=== PATIENT | female | born 1995 | race Caucasian/White ===

== ENCOUNTER 2018-03-25 14:19 | Emergency (ER) | payer BC, SELFPAY ==
[2018-03-25 14:28] VITALS: BP 134/82; PULSE 114; RESP 18; TEMP 36.6; O2SAT 100; BMI 31.8
[2018-03-25 15:23] LABS: Bacteria Urine Many (>30); Hyaline Casts Urine 1-5/LPF; Mucus Urine 1+ (Negative); RBC Urine 0-1/HPF (0-5/HPF); Squamous Epithelial Cell Urine 10-30 /HPF; WBC Urine 1-5/HPF (0-5/HPF)
[2018-03-25 15:25] LABS: Culture Indicated Urine Cult Not Indicated
--- NOTE | 2018-03-25 15:26 | ED.ABDPAIN ---
HPI - Abdominal Pain General Chief Complaint: Abdominal Pain Stated Complaint: Right sided abdominal pain Time Seen by Provider: 03/25/18 14:40 Source: patient and family Mode of arrival: ambulatory Limitations: no limitations History of Present Illness HPI narrative: 22-year-old nonsmoking female with history of AML presents with significant other in the chief complaint of gradually worsening right lower quadrant pain over the past 2 days. It started off periumbilical and now seems to be focused in her right lower quadrant. It is much worse with motion, standing up or walking. It feels much better while sitting still with her knees curled up. She denies any vaginal bleeding or discharge. She denies any dysuria, frequency or urgency but does have a history of frequent UTIs. She has had multiple episodes of nausea and vomiting has decreased appetite. MD complaint: abdominal pain Onset (ago): day(s) Pain Consistency: constant Location: RLQ Severity: moderate Quality: cramping and aching Radiation: none Migration to: no migration Relieving factors: rest Exacerbating factors: movement Associated symptoms: nausea and vomiting Related Data Home Medications Medication Instructions Recorded Confirmed acetaminophen 1,000 mg PO Q6H PRN 03/25/18 03/25/18 albuterol sulfate [Ventolin HFA] 1 puff INHALATION PRN PRN 03/25/18 03/25/18 alprazolam 1 mg PO DAILY PRN 03/25/18 03/25/18 cetirizine-pseudoephedrine 1 tab PO Q12H PRN 03/25/18 03/25/18 [Zyrtec-D] cholecalciferol (vitamin D3) 2,000 unit PO DAILY 03/25/18 03/25/18 [Vitamin D3] deferasirox [Jadenu] 1,440 mg PO BEDTIME 03/25/18 03/25/18 diphenhydramine HCl 25 mg PO Q6H PRN 03/25/18 03/25/18 fluticasone-vilanterol [Breo 1 puff INHALATION DAILY 03/25/18 03/25/18 Ellipta] hydrocodone-acetaminophen 1 tab PO PRN PRN 03/25/18 03/25/18 montelukast 10 mg PO QPM 03/25/18 03/25/18 norethindrone-e.estradiol-iron 1 tab PO DAILY 03/25/18 03/25/18 [Jayashree 24 Fe] ondansetron 8 mg PO PRN PRN 03/25/18 03/25/18 pantoprazole 40 mg PO QPM 03/25/18 03/25/18 Previous Rx's Medication Instructions Recorded hydrocodone-acetaminophen 1 tab PO Q4-6H PRN #14 tab 03/25/18 ketorolac 10 mg PO Q6H PRN #14 tab 03/25/18 ondansetron 4 mg PO TID-QID PRN #10 tab 03/25/18 Allergies Allergy/AdvReac Type Severity Reaction Status Date / Time cefixime Allergy Verified 03/25/18 14:33 rifampin Allergy Verified 03/25/18 14:33 topiramate [From Topamax] Allergy Verified 03/25/18 14:33 ketorolac [From Toradol] AdvReac Verified 03/25/18 14:33 metoclopramide [From Reglan] AdvReac Verified 03/25/18 14:33 Review of Systems Review of Systems All systems reviewed & are unremarkable except as noted in HPI and below Constitutional Denies chills, Denies fever(s), Denies lethargy and Denies weakness Eyes Denies change in vision, Denies eye discharge, Denies irritation and Denies loss of vision ENT Ears, Nose, Mouth, and Throat: Denies change in voice, Denies neck pain and Denies sore throat Cardiovascular Denies chest pain, Denies irregular heart rhythm, Denies lightheadedness, Denies palpitations, Denies dyspnea, Denies dyspnea on exertion and Denies orthopnea Respiratory Denies cough, Denies dyspnea, Denies dyspnea on exertion and Denies wheezing Gastrointestinal Gastrointestinal: Reports abdominal pain, Denies change in bowel habits, Denies diarrhea, Reports nausea and Reports vomiting Genitourinary Denies hematuria, Denies flank pain, Denies urinary incontinence and Denies urinary urgency Musculoskeletal Denies neck pain Integumentary/Breasts Denies pruritus, Denies erythema, Denies rash and Denies wounds Neurologic Denies confusion, Denies loss of vision and Denies weakness Psychiatric Denies anxiety, Denies confusion, Denies depression, Denies homicidal ideation and Denies suicidal ideation Endocrine Denies palpitations Hematologic/Lymphatic Denies easy bruising Allergic/Immunologic Denies wheezing PFSH Medical History AML (acute myeloblastic leukemia) (Acute) Ovarian cyst (Acute) Surgical History History of cholecystectomy (Acute) Social History Smoking Status: Current every day smoker Exam Narrative Exam Narrative: GENERAL: Pleasant 22-year-old female, obviously uncomfortable, tearful and clutching her right lower abdomen HEAD: Atraumatic. Normocephalic. No temporal or scalp tenderness. EYES: Pupils equal round and reactive. Extraocular motions intact. No scleral icterus. No injection or drainage. ENT: Nose without bleeding, purulent drainage or septal hematoma. Throat without erythema, tonsillar hypertrophy or exudate. Uvula midline. Airway patent. NECK: Trachea midline. No JVD or lymphadenopathy. Supple, nontender, no meningeal signs. CARDIOVASCULAR: Regular rate and rhythm without murmurs, gallops, or rubs. RESPIRATORY: Clear to auscultation. Breath sounds equal bilaterally. No wheezes, rales, or rhonchi. GASTROINTESTINAL: Abdomen is soft and very tender in the right lower quadrant with localized peritonitis. She has positive psoas sign and heel tap EXTREMITIES: No clubbing, cyanosis, or edema. No joint tenderness, effusion, or edema noted. BACK: Nontender without deformity or crepitance. No flank tenderness. NEURO: AOx3. SKIN: No rash or erythema. Initial Vital Signs Initial Vital Signs: Vital Signs Temperature 97.8 F 03/25/18 14:28 Pulse Rate 114 H 03/25/18 14:28 Respiratory Rate 18 03/25/18 14:28 Blood Pressure 134/82 03/25/18 14:28 Pulse Oximetry 100 03/25/18 14:28 Course Orders Ordered: ED Orders 03/25/18 15:04 Urine Microscopic Stat 03/25/18 15:25 US pelvic complete Stat 03/25/18 16:48 Complete Blood Count AUTO DIFF Stat Comprehensive Metabolic Panel Stat Lipase Stat Sodium Chloride (Normal Saline 0.9%) 1,000 mls @ 150 mls/hr IV CONT SANDIP Discontinued Medications Hydromorphone HCl (Dilaudid) 0.5 mg IV NOW ONE Stop: 03/25/18 15:26 Ketorolac Tromethamine (Toradol) 60 mg IM NOW ONE Stop: 03/25/18 18:03 Ondansetron HCl (Zofran) 4 mg IV NOW ONE Stop: 03/25/18 15:26 Vital Signs - 8 hr 03/25/18 14:28 03/25/18 15:45 Temperature 97.8 F Pulse Rate 114 H 99 H Respiratory Rate 18 16 Blood Pressure 134/82 Blood Pressure [Left Arm] 97/63 Pulse Oximetry 100 100 MDM - Abdominal Pain Differential Diagnosis Differential diagnosis: Likely abdominal pain, acute appendicitis, calculus of kidney, constipation, gastroenteritis, pancreatitis and small bowel obstruction Medical Records Attestation: I reviewed the patient's medical records. Lab Data Attestation: I reviewed the patient's lab results. Result diagrams: 03/25/18 16:48 03/25/18 16:48 Lab Results 03/25/18 03/25/18 03/25/18 Range/Units 15:04 16:48 16:48 WBC 10.1 (4.5-11.0) X10^3/uL RBC 4.27 (4.0-5.2) X10^6/uL Hgb 14.1 (12.0-16.0) g/dL Hct 41.9 (36-46) % MCV 98.1 (80-100) fL MCH 32.9 (26-34) PG MCHC 33.6 (30-36) % RDW 13.1 (11.6-14.8) % Plt Count 232 (150-400) X10^3/uL Neut % (Auto) 67.5 (50-75) % Lymph % (Auto) 25.2 (25-40) % Cross % (Auto) 5.8 (3-14) % Eos % (Auto) 0.9 L (2-4) % Baso % (Auto) 0.6 (0-2) % Neut # (Auto) 6800 H (5041-2778) /uL Sodium 140 (137-145) mmol/L Potassium 4.2 (3.4-5.1) mmol/L Chloride 110 H (98-107) mmol/L Carbon Dioxide 19 L (22-32) mmol/L BUN 17 (7-17) mg/dL Creatinine 1.10 H (0.52-1.04) mg/dL Estimated GFR > 60.0 (>60) mL/min BUN/Creatinine Ratio 15.5 (6-22) Glucose 95 (70-100) mg/dL Calcium 8.7 (8.4-10.2) mg/dL Total Bilirubin 0.4 (0.2-1.3) mg/dL AST 16 (14-36) IU/L ALT 16 (9-52) IU/L Alkaline Phosphatase 59 (38-126) U/L Total Protein 7.3 (6.3-8.2) g/dL Albumin 4.2 (3.5-5.0) g/dL Globulin 3.1 (1.7-4.1) g/dL Albumin/Globulin Ratio 1.4 (1.0-2.8) Lipase 43 (23-300) U/L Urine RBC 0-1/hpf (0-5/HPF) Urine WBC 1-5/hpf (0-5/HPF) Ur Squamous Epith Cells 10-30 /hpf H Urine Bacteria Many (>30) H (None) Hyaline Casts 1-5/lpf (None) Urine Mucus 1+ H (Negative) Ur Culture Indicated? Cult not indicated Micro UA Comment Not Reportable Point of care testing: Point of Care Testing Test Results Negative Urine Dip Bedside Urine Glucose Negative Bedside Urine Bilirubin - Negative Bedside Urine Ketone - Negative Urine Specific [place] 1.025 Bedside Urine Occult Blood +/- Bedside Urine pH 6.0 Bedside Urine Protein +/- 15 Bedside Urine Urobilinogen - Negative Bedside Urine Nitrite - Negative Bedside Urine Leukocytes - Negative Esterase Imaging Data US - abdomen: Radiologist's impression: [address] [address] Ultrasound Report Signed Patient: Moira Luis [facility]#: [id number] : 1995Acct:[id number] Age/Sex: 22 / FDate of Service: 03/25/18 Loc: ED Accession Number: [id number] Procedure: US pelvic complete Ordering Provider: Brian Luna D.O. PROCEDURE: US PELVIC COMPLETE INDICATIONS: severe RLQ pain, appy vs. ovary TECHNIQUE: Real-time scanning was performed of the pelvic organs, with image documentation. Additional endovaginal scanning was necessary due to incomplete visualization of the adnexal and endometrial structures by transabdominal scanning. COMPARISON: None. FINDINGS: Transabdominal scanning: Limited scanning through the kidneys shows no hydronephrosis. No pathologic free abdominal or pelvic fluid. Endovaginal scanning: Uterus: Uterus is normal in size at 4.6 x 3.4 x 3.5 cm. The endometrium measures 3.4 mm in combined thickness. Ovaries: Right ovary measures 16 x 20 x 20 mm. Focal area of hypoechogenicity is identified measuring 14 x 10 x 15 mm. Left ovary is not visualized. Adnexa is unremarkable. Miscellaneous: Appendix not visualized. No right lower quadrant fluid. IMPRESSION: 1. Right ovarian cyst. 2. Appendix is nonvisualized. Right lower quadrant is unremarkable. Dictated by: Sheila Dewey M.D. on 03/25/2018 at 17:42 Approved by: Sheila Dewey M.D. on 03/25/2018 at 17:44 [facility] Narrative Medical decision making narrative: 22-year-old female with extensive medical history presents with 2 days of right lower quadrant pain which is worse with motion and improves with rest. She denies any fever but has had vomiting. Her labs are unremarkable. Ultrasound shows a right ovarian cyst and no evidence of appendicitis. The patient is a very difficult IV start and despite multiple attempts were unsuccessful. I had a lengthy conversation with the patient including the likelihood of us finding anything on the CT scan given her lack of white blood cells or a fever. We sure the opinion that diagnosis of ovarian cyst is much more likely given her story, ultrasound, labs and vital signs. She has been given return precautions including increased pain, fever and other bothersome symptoms which would dictate a return at which point we would consider a CT scan at that point in time. Discharge Plan Departure Patient Disposition: Home Clinical Impression: Ovarian cyst Instructions: Ovarian Cyst Activity Restrictions/Additional Instructions: *You have been diagnosed with [acute Right ovarian cyst pain ] *What to do: *Take medications as directed *Follow up with your OB provider in 2-3 days, call for an appointment. Let them know you were seen in the Emergency Department and that we ask that you be seen in follow up *Return to ER if you should have any new, worsening or concerning symptoms, such as [ worsening pain, fever over 101 F, persistent vomiting, other bothersome symptoms] Prescriptions: New hydrocodone-acetaminophen 5-325 mg tablet 1 tab PO Q4-6H PRN (Reason: pain) Qty: 14 RF: 0 ketorolac 10 mg tablet 10 mg PO Q6H PRN (Reason: pain) Qty: 14 RF: 0 ondansetron 4 mg tablet,disintegrating 4 mg PO TID-QID PRN (Reason: nausea and vomiting) Qty: 10 RF: 0 No Action alprazolam 1 mg tablet 1 mg PO DAILY PRN (Reason: Anxiety) RF: 0 hydrocodone-acetaminophen 10-325 mg tablet 1 tab PO PRN PRN (Reason: pain) RF: 0 pantoprazole 40 mg tablet,delayed release (DR/EC) 40 mg PO QPM RF: 0 montelukast 10 mg tablet 10 mg PO QPM RF: 0 albuterol sulfate [Ventolin HFA] 90 mcg/actuation HFA aerosol inhaler 1 puff Inhalation PRN PRN (Reason: Shortness Of Breath) RF: 0 norethindrone-e.estradiol-iron [Jayashree 24 Fe] 1 mg-20 mcg (24)/75 mg (4) tablet 1 tab PO DAILY RF: 0 fluticasone-vilanterol [Breo Ellipta] 200-25 mcg/dose blister with device 1 puff Inhalation DAILY RF: 0 deferasirox [Jadenu] 360 mg tablet 1,440 mg PO BEDTIME RF: 0 acetaminophen 500 mg Tablet 1,000 mg PO Q6H PRN (Reason: pain) RF: 0 cetirizine-pseudoephedrine [Zyrtec-D] 5-120 mg Tablet Extended Release 12 Hr 1 tab PO Q12H PRN (Reason: Allergy Symptoms) RF: 0 ondansetron 8 mg Tablet,Disintegrating 8 mg PO PRN PRN (Reason: Nausea) RF: 0 diphenhydramine HCl 25 mg Tablet 25 mg PO Q6H PRN (Reason: Allergy Symptoms) RF: 0 cholecalciferol (vitamin D3) [Vitamin D3] 1,000 unit Capsule 2,000 unit PO DAILY RF: 0
[2018-03-25 15:45] VITALS: BP 97/63; PULSE 99; RESP 16; O2SAT 100
[2018-03-25 17:07] LABS: Add Manual Diff / Slide Review NO; Basophils Percent Auto 0.6 % (0-2); Eosinophils Percent Auto 0.9 % (2-4); Hematocrit 41.9 % (36-46); Hemoglobin 14.1 g/dL (12.0-16.0); Lymphocytes Percent Auto 25.2 % (25-40); Mean Corpuscular HGB Conc 33.6 % (30-36); Mean Corpuscular Hemoglobin 32.9 PG (26-34); Mean Corpuscular Volume 98.1 fL (80-100); Monocytes Percent Auto 5.8 % (3-14); Neutrophils Absolute Auto 6800 /uL (3000-5900); Neutrophils Percent Auto 67.5 % (50-75); Platelet Count 232 X10^3/uL (150-400); Red Blood Cell Count 4.27 X10^6/uL (4.0-5.2); Red Cell Distribution Width 13.1 % (11.6-14.8); White Blood Cell Count 10.1 X10^3/uL (4.5-11.0)
[2018-03-25 17:11] LABS: Alanine Aminotransferase 16 IU/L (9-52); Albumin 4.2 g/dL (3.5-5.0); Albumin Globulin Ratio 1.4 (1.0-2.8); Alkaline Phosphatase 59 U/L (38-126); Aspartate Aminotransferase 16 IU/L (14-36); BUN Creatinine Ratio 15.5 (6-22); Bilirubin Total 0.4 mg/dL (0.2-1.3); Blood Urea Nitrogen 17 mg/dL (7-17); Calcium 8.7 mg/dL (8.4-10.2); Carbon Dioxide 19 mmol/L (22-32); Chloride 110 mmol/L (98-107); Estimated Glomerular Filt Rate > 60.0 mL/min (>60); Globulin 3.1 g/dL (1.7-4.1); Glucose 95 mg/dL (70-100); HEMOLYSIS 16 (0-50); Lipase 43 U/L (23-300); Potassium 4.2 mmol/L (3.4-5.1); Sodium 140 mmol/L (137-145); Total Protein 7.3 g/dL (6.3-8.2)
[2018-03-25] MEDS: KETOROLAC 60 MG/2 ML VIAL IM (18:20)
[2018-03-25 18:23] VITALS: BP 140/71; PULSE 105; RESP 18; O2SAT 100
--- NOTE | 2018-03-25 18:34 | PC.NURSE ---
multiple iv attempts by 3 RN's. JENA Linda nurse and JENA Lovell nurse were unable to find veins. Dr. Luna at bedside and aware of multiple iv attempts. pt was given im toradol.
== END 2018-03-25 18:37 | disposition home or self-care (01) ==
PROVIDERS: Emergency Provider Emergency Medicine
DX: N83.201 Unspecified ovarian cyst, right side (principal)
CPT/HCPCS: 76830; 76856; 80053; 81003; 81015; 81025; 83690; 85025; 96372; 99282; 99284; J1885

== ENCOUNTER 2018-03-28 16:06 | Emergency (ER) | payer BC, SELFPAY ==
[2018-03-28 16:14] VITALS: BP 96/55; PULSE 119; RESP 158; TEMP 36.9; O2SAT 100; BMI 33.5
--- NOTE | 2018-03-28 16:18 | ED_ITS ---
HPI - Abdominal Pain <Nataly Oliveira PA-C - Last Filed: 03/28/18 21:42> General Chief Complaint: Abdominal Pain Stated Complaint: lower right abdominal pain Time Seen by Provider: 03/28/18 16:11 Source: patient Mode of arrival: ambulatory Limitations: no limitations History of Present Illness HPI narrative: This 22-year-old female returns to ED due to worsening right at so pain. She was seen here 3 days ago and diagnosed with right adnexal cyst. She states pain has been worsening and about an hour and half ago got to the point that she has started vomiting again because of the pain. She states it is still located in the same area and feels like it is similar to her previous cyst , but is radiating up further into her abdomen a little bit now. It is worse with movement or lying flat, somewhat better if she is curled up on her side. She denies any new fever or pain elsewhere. She does not have any urinary symptoms or other new complaints. Denies possibility of . She has a history of cyst on her right side as well. Related Data Home Medications Medication Instructions Recorded Confirmed acetaminophen 1,000 mg PO Q6H PRN 03/25/18 03/28/18 albuterol sulfate [Ventolin HFA] 1 puff INHALATION PRN PRN 03/25/18 03/28/18 alprazolam 1 mg PO DAILY PRN 03/25/18 03/28/18 cetirizine-pseudoephedrine 1 tab PO Q12H PRN 03/25/18 03/28/18 [Zyrtec-D] cholecalciferol (vitamin D3) 2,000 unit PO DAILY 03/25/18 03/28/18 [Vitamin D3] deferasirox [Jadenu] 1,440 mg PO BEDTIME 03/25/18 03/28/18 diphenhydramine HCl 25 mg PO Q6H PRN 03/25/18 03/28/18 fluticasone-vilanterol [Breo 1 puff INHALATION DAILY 03/25/18 03/28/18 Ellipta] montelukast 10 mg PO QPM 03/25/18 03/28/18 norethindrone-e.estradiol-iron 1 tab PO DAILY 03/25/18 03/28/18 [Jayashree 24 Fe] pantoprazole 40 mg PO QPM 03/25/18 03/28/18 carisoprodol 350 mg PO TID 03/28/18 03/28/18 Previous Rx's Medication Instructions Recorded hydrocodone-acetaminophen 1 tab PO Q4-6H PRN #14 tab 03/25/18 ketorolac 10 mg PO Q6H PRN #14 tab 03/25/18 ondansetron 4 mg PO TID-QID PRN #10 tab 03/25/18 hydrocodone-acetaminophen [[place]] 1 tab PO Q4-6H PRN #10 tab 03/28/18 ondansetron HCl [Zofran] 4 mg PO Q6-8H PRN #7 tab 03/28/18 Allergies Allergy/AdvReac Type Severity Reaction Status Date / Time cefixime Allergy Verified 03/28/18 16:14 rifampin Allergy Verified 03/28/18 16:14 topiramate [From Topamax] Allergy Verified 03/28/18 16:14 ketorolac [From Toradol] AdvReac Verified 03/28/18 16:14 metoclopramide [From Reglan] AdvReac Verified 03/28/18 16:14 Review of Systems <Nataly Oliveira PA-C - Last Filed: 03/28/18 21:42> Review of Systems All systems reviewed & are unremarkable except as noted in HPI and below Exam <Nataly Oliveira PA-C - Last Filed: 03/28/18 21:42> Narrative Exam Narrative: GENERAL APPEARANCE: Patient appears uncomfortable, tearful HEENT: PERRL, EOMI, no scleral icterus NECK: Supple LUNGS: Clear to auscultation bilaterally. HEART: Rate and rhythm regular, normal S1 and S2, no S3 or S4. ABDOMEN: Soft, nondistended, bowel sounds present x 4 quadrants, no masses palpable, tender over the right pelvic/lower abdominal border, no point tenderness elsewhere in the abdomen, no CVAT. No guarding or rebound. EXTREMITIES: No edema DERMATOLOGIC: No jaundice or exanthem NEUROLOGIC: Alert and oriented with normal speech and coordination Initial Vital Signs Initial Vital Signs: Vital Signs Temperature 98.5 F 03/28/18 16:14 Pulse Rate 119 H 03/28/18 16:14 Respiratory Rate 158 H 03/28/18 16:14 Blood Pressure 96/55 L 03/28/18 16:14 Pulse Oximetry 100 03/28/18 16:14 Note error in initial RR, see subsequent <Brian Luna DO - Last Filed: 04/04/18 18:54> Initial Vital Signs Initial Vital Signs: Vital Signs Temperature 98.5 F 03/28/18 16:14 Pulse Rate 119 H 03/28/18 16:14 Respiratory Rate 158 H 03/28/18 16:14 Blood Pressure 96/55 L 03/28/18 16:14 Pulse Oximetry 100 03/28/18 16:14 Course <Nataly Oliveira PA-C - Last Filed: 03/28/18 21:42> Additional Information: Patient was tearful and uncomfortable initially, fell asleep after IV dose of Dilaudid and Zofran. Review CT findings with Dr. Andres, and I also spoke with Dr. Turner, on-call for surgery, who did not see signs of acute appendicitis on CT. Patient's white count is normal, and decreased from 2 days ago. She has not developed fever. She is now resting comfortably. Dr. Turner has evaluated in the patient in the ED and agrees with plan to d/c patient. Reviewed instructions on need to return if acutely worsening sx and patient agrees with this as well as plan to f/u with PCP and NEWS ASSISTANT on return home as she has had some chronic pelvic pain. Orders Ordered: Discontinued Medications Diphenhydramine HCl (Benadryl) 25 mg PO NOW ONE Stop: 03/28/18 17:37 Last Admin: 03/28/18 17:38 Dose: 25 mg Hydromorphone HCl (Dilaudid) 2 mg IM NOW ONE Stop: 03/28/18 16:53 Last Admin: 03/28/18 17:02 Dose: 2 mg Hydromorphone HCl (Dilaudid) 0.5 mg IV NOW ONE Stop: 03/28/18 18:30 Last Admin: 03/28/18 18:37 Dose: 0.5 mg Sodium Chloride (Normal Saline 0.9%) 1,000 mls @ 1,000 mls/hr IV BOLUS ONE Stop: 03/28/18 18:43 Last Infusion: 03/28/18 20:22 Dose: 0 mls/hr Admin: 03/28/18 19:04 Dose: 1,000 mls/hr Ketorolac Tromethamine (Toradol) 60 mg IM NOW ONE Stop: 03/28/18 16:50 Last Admin: 03/28/18 17:01 Dose: 60 mg Ondansetron HCl (Zofran Odt) 4 mg PO NOW ONE Stop: 03/28/18 16:48 Last Admin: 03/28/18 17:03 Dose: 4 mg Ondansetron HCl (Zofran) 4 mg IV NOW ONE Stop: 03/28/18 18:30 Last Admin: 03/28/18 18:37 Dose: 4 mg Vital Signs - 8 hr 03/28/18 16:14 03/28/18 19:12 03/28/18 20:20 Temperature 98.5 F 98.7 F Pulse Rate 119 H 105 H 101 H Respiratory Rate 158 H 18 18 Blood Pressure 96/55 L Blood Pressure [Right Arm] 105/50 L 102/87 Pulse Oximetry 100 99 99 <Brian Luna, DO - Last Filed: 04/04/18 18:54> Orders Ordered: Discontinued Medications Diphenhydramine HCl (Benadryl) 25 mg PO NOW ONE Stop: 03/28/18 17:37 Last Admin: 03/28/18 17:38 Dose: 25 mg Hydromorphone HCl (Dilaudid) 2 mg IM NOW ONE Stop: 03/28/18 16:53 Last Admin: 03/28/18 17:02 Dose: 2 mg Hydromorphone HCl (Dilaudid) 0.5 mg IV NOW ONE Stop: 03/28/18 18:30 Last Admin: 03/28/18 18:37 Dose: 0.5 mg Sodium Chloride (Normal Saline 0.9%) 1,000 mls @ 1,000 mls/hr IV BOLUS ONE Stop: 03/28/18 18:43 Last Infusion: 03/28/18 20:22 Dose: 0 mls/hr Admin: 03/28/18 19:04 Dose: 1,000 mls/hr Ketorolac Tromethamine (Toradol) 60 mg IM NOW ONE Stop: 03/28/18 16:50 Last Admin: 03/28/18 17:01 Dose: 60 mg Ondansetron HCl (Zofran Odt) 4 mg PO NOW ONE Stop: 03/28/18 16:48 Last Admin: 03/28/18 17:03 Dose: 4 mg Ondansetron HCl (Zofran) 4 mg IV NOW ONE Stop: 03/28/18 18:30 Last Admin: 03/28/18 18:37 Dose: 4 mg Vital Signs - 8 hr 03/28/18 16:14 03/28/18 19:12 03/28/18 20:20 Temperature 98.5 F 98.7 F Pulse Rate 119 H 105 H 101 H Respiratory Rate 158 H 18 18 Blood Pressure 96/55 L Blood Pressure [Right Arm] 105/50 L 102/87 Pulse Oximetry 100 99 99 MDM - Abdominal Pain <Nataly Oliveira PA-C - Last Filed: 03/28/18 21:42> Lab Data Attestation: I reviewed the patient's lab results. Result diagrams: 03/28/18 18:32 03/28/18 18:32 Lab Results 03/28/18 03/28/18 Range/Units 18:32 18:32 WBC 8.1 (4.5-11.0) X10^3/uL RBC 4.15 (4.0-5.2) X10^6/uL Hgb 13.8 (12.0-16.0) g/dL Hct 40.3 (36-46) % MCV 97.2 (80-100) fL MCH 33.3 (26-34) PG MCHC 34.2 (30-36) % RDW 13.4 (11.6-14.8) % Plt Count 295 (150-400) X10^3/uL Neut % (Auto) 60.6 (50-75) % Lymph % (Auto) 31.2 (25-40) % [place] % (Auto) 6.1 (3-14) % Eos % (Auto) 1.4 L (2-4) % Baso % (Auto) 0.7 (0-2) % Neut # (Auto) 4900 (6904-2962) /uL Sodium 140 (137-145) mmol/L Potassium 3.9 (3.4-5.1) mmol/L Chloride 109 H (98-107) mmol/L Carbon Dioxide 20 L (22-32) mmol/L BUN 14 (7-17) mg/dL Creatinine 1.20 H (0.52-1.04) mg/dL Estimated GFR 55.7 L (>60) mL/min BUN/Creatinine Ratio 11.7 (6-22) Glucose 95 (70-100) mg/dL Calcium 8.5 (8.4-10.2) mg/dL Total Bilirubin 0.3 (0.2-1.3) mg/dL AST 21 (14-36) IU/L ALT 13 (9-52) IU/L Alkaline Phosphatase 64 (38-126) U/L Total Protein 7.1 (6.3-8.2) g/dL Albumin 3.9 (3.5-5.0) g/dL Globulin 3.2 (1.7-4.1) g/dL Albumin/Globulin Ratio 1.2 (1.0-2.8) Lipase 28 (23-300) U/L Point of care testing: Point of Care Testing Test Results Negative Urine Dip Bedside Urine Glucose Negative Bedside Urine Bilirubin - Negative Bedside Urine Ketone - Negative Urine Specific Wilsey 1.025 Bedside Urine Occult Blood - Negative Bedside Urine pH 6.0 Bedside Urine Protein +/- 15 Bedside Urine Urobilinogen - Negative Bedside Urine Nitrite - Negative Bedside Urine Leukocytes - Negative Esterase Imaging Data pelvis: Radiologist's impression: [address] [address] Ultrasound Report Signed Patient: Moira Luis [facility]#: [id number] : 1995Acct:[id number] Age/Sex: 22 FDate of Service: 03/28/18 Loc: ED Accession Number: [id number] Procedure: US pelvic complete Ordering Provider: Nataly Oliveira P.A-C PROCEDURE: US PELVIC COMPLETE INDICATIONS: R. ovarian cyst, increased pain TECHNIQUE: Real-time scanning was performed of the pelvic organs, with image documentation. Additional endovaginal scanning was necessary due to incomplete visualization of the adnexal and endometrial structures by transabdominal scanning. COMPARISON: [facility], US PELVIC COMPLETE, 03/25/2018, 17:12. FINDINGS: Transabdominal scanning: Limited scanning through the kidneys shows no hydronephrosis. No pathologic free abdominal or pelvic fluid. Endovaginal scanning: Uterus: Uterus is normal in size at 6.2 x 2.0 x 3.6 cm. The endometrium measures 2 mm in combined thickness. Ovaries: Right ovary is not well-seen. No gross adnexal masses seen. The left ovary measures 1.8 x 1.2 x 1.2 cm although only seen transabdominally. Peristalsing bowel seen in the right lower quadrant. However, the appendix is not clearly identified. IMPRESSION: Right ovary not visualized. No gross right adnexal mass or lesion seen. Otherwise, grossly unremarkable examination as above Dictated by: Andrew Andres M.D. on 03/28/2018 at 19:00 Approved by: Andrew Andres M.D. on 03/28/2018 at 19:02 CT scan - abdomen: Radiologist's impression: Moira Luis - Patient Chart Chart Viewer Diagnostics DATE TYPE STATUS AUTHOR Hx 03/28/18 17:44 Andrew Andres 03/28/18 16:49 Andrew Andres 03/25/18 15:25 Sheila Dewey Moira Luis , 1995 [facility] ER, ED - Main ED: R08 162.56cm 88.451kg BSA: 1.94m? BMI: 33.5kg/m? Abdominal Pain Search Chart cefixime rifampin topiramate (From Topamax) ketorolac (From Toradol) metoclopramide (From Reglan) ONSET Today 19:12 [place] [address] CT Scan Report Signed Patient: Moira Luis [facility]#: [id number] : 1995Acct:[id number] Age/Sex: 22 / FDate of Service: 03/28/18 Loc: ED Accession Number: [id number] Procedure: CT abdomen pelvis w con Ordering Provider: Nataly Oliveira P.A-C PROCEDURE: CT ABDOMEN PELVIS W CON INDICATIONS: Right Lower quadrant pain. Adenexal pain, History of cyst. TECHNIQUE: After the administration of intravenous contrast, 5 mm thick sections acquired from the diaphragm to the symphysis. 5 mm coronal and sagittal reformats were acquired. For radiation dose reduction, the following was used: automated exposure control, adjustment of mA and/or kV according to patient size. COMPARISON: [facility], PELVIC COMPLETE, 03/28/2018, 17:15. [facility], PELVIC COMPLETE, 03/25/2018, 17:12. FINDINGS: Image quality: Excellent. ABDOMEN: Lung bases: Lung bases are clear. Heart size is normal. Solid organs: Liver is normal in size and enhancement. Gallbladder surgically absent. Biliary system is non dilated. Pancreas enhances normally. Spleen is normal in size and enhancement. No adrenal nodules. Kidneys demonstrate normal size and enhancement, without hydronephrosis. Peritoneum and bowel: No evidence of bowel obstruction. Large amount of stool seen throughout the colon. The appendix is seen in the right lower quadrant, and the tip may be borderline enlarged measuring 5-6 mm. There are internal areas of increased attenuation raising possibility of sub-5 mm appendicolith, versus debris. There is mild stranding adjacent to the tip of the appendix. No abscess. No free fluid or air. Nodes and vessels: No retroperitoneal or mesenteric adenopathy by size criteria. Aorta and inferior vena cava are normal in size. Miscellaneous: No ventral hernias. PELVIS: Genitourinary: Bladder wall thickness is normal. No definite adnexal cyst seen. Miscellaneous: No inguinal hernias or adenopathy. Bones: No suspicious bony lesions. No vertebral body compression fractures. IMPRESSION: Borderline enlargement of the distal appendix, with questionable periappendiceal fat stranding/inflammation. This raises the possibility of early acute or tip appendicitis. Intraluminal increased density suggesting debris/tiny appendicoliths. Please correlate clinically and with laboratory data. Large amount of stool in keeping with severe constipation. Elsewhere, no acute abnormality. Status post cholecystectomy. Findings were personally telephoned and discussed with Nataly BORJAS in the emergency department 1927 hours on 03/28/18. Dictated by: Andrew Andres M.D. on 03/28/2018 at 19:21 Approved by: Andrew Andres M.D. on 03/28/2018 at 19:30 <Brian Luna DO - Last Filed: 04/04/18 18:54> Lab Data Lab Results 03/28/18 03/28/18 Range/Units 18:32 18:32 WBC 8.1 (4.5-11.0) X10^3/uL RBC 4.15 (4.0-5.2) X10^6/uL Hgb 13.8 (12.0-16.0) g/dL Hct 40.3 (36-46) % MCV 97.2 (80-100) fL MCH 33.3 (26-34) PG MCHC 34.2 (30-36) % RDW 13.4 (11.6-14.8) % Plt Count 295 (150-400) X10^3/uL Neut % (Auto) 60.6 (50-75) % Lymph % (Auto) 31.2 (25-40) % Hampton % (Auto) 6.1 (3-14) % Eos % (Auto) 1.4 L (2-4) % Baso % (Auto) 0.7 (0-2) % Neut # (Auto) 4900 (9495-4057) /uL Sodium 140 (137-145) mmol/L Potassium 3.9 (3.4-5.1) mmol/L Chloride 109 H (98-107) mmol/L Carbon Dioxide 20 L (22-32) mmol/L BUN 14 (7-17) mg/dL Creatinine 1.20 H (0.52-1.04) mg/dL Estimated GFR 55.7 L (>60) mL/min BUN/Creatinine Ratio 11.7 (6-22) Glucose 95 (70-100) mg/dL Calcium 8.5 (8.4-10.2) mg/dL Total Bilirubin 0.3 (0.2-1.3) mg/dL AST 21 (14-36) IU/L ALT 13 (9-52) IU/L Alkaline Phosphatase 64 (38-126) U/L Total Protein 7.1 (6.3-8.2) g/dL Albumin 3.9 (3.5-5.0) g/dL Globulin 3.2 (1.7-4.1) g/dL Albumin/Globulin Ratio 1.2 (1.0-2.8) Lipase 28 (23-300) U/L Point of care testing: Point of Care Testing Test Results Negative Urine Dip Bedside Urine Glucose Negative Bedside Urine Bilirubin - Negative Bedside Urine Ketone - Negative Urine Specific Wilsey 1.025 Bedside Urine Occult Blood - Negative Bedside Urine pH 6.0 Bedside Urine Protein +/- 15 Bedside Urine Urobilinogen - Negative Bedside Urine Nitrite - Negative Bedside Urine Leukocytes - Negative Esterase Discharge Plan Departure Patient Disposition: Home Clinical Impression: Pelvic pain, Abdominal pain Discharge Date/Time: 03/28/18 20:30 Interventions: ED Discharge Assessment Last Done: 03/28/18 20:29 Instructions: DI for Abdominal Pain-Adult Activity Restrictions/Additional Instructions: Please as we talked about if you are acutely worse again, or have new symptoms such as fever. The surgeon here reviewed your CT scan tonight and did not think that you have acute appendicitis after he examined you. Your constipation and gas in the bowel made it difficult to see your ovary, and it is likely that the constipation is making your pain worse. You can continue the nausea and pain medicine as needed. Please treat the constipation by mixing a dose of MiraLax with 4-6 oz each of prune juice and apple juice and a dose of liquid Maalox or Mylanta. You can continue that daily as needed. Please call your doctor in [place] tomorrow and let them known that you were seen in the emergency, as you should follow up there for recheck as soon as you get home. You may need to follow up with your pulling unit operator as well. Prescriptions: New hydrocodone-acetaminophen [[place]] 5-325 mg tablet 1 tab PO Q4-6H PRN (Reason: acute abdominal/pelvic pain) Qty: 10 RF: 0 ondansetron HCl [Zofran] 4 mg tablet 4 mg PO Q6-8H PRN (Reason: nausea and vomiting) Qty: 7 RF: 0 No Action alprazolam 1 mg tablet 1 mg PO DAILY PRN (Reason: Anxiety) RF: 0 pantoprazole 40 mg tablet,delayed release (DR/EC) 40 mg PO QPM RF: 0 montelukast 10 mg tablet 10 mg PO QPM RF: 0 albuterol sulfate [Ventolin HFA] 90 mcg/actuation HFA aerosol inhaler 1 puff Inhalation PRN PRN (Reason: Shortness Of Breath) RF: 0 norethindrone-e.estradiol-iron [Jayashree 24 Fe] 1 mg-20 mcg (24)/75 mg (4) tablet 1 tab PO DAILY RF: 0 fluticasone-vilanterol [Breo Ellipta] 200-25 mcg/dose blister with device 1 puff Inhalation DAILY RF: 0 deferasirox [Jadenu] 360 mg tablet 1,440 mg PO BEDTIME RF: 0 acetaminophen 500 mg Tablet 1,000 mg PO Q6H PRN (Reason: pain) RF: 0 cetirizine-pseudoephedrine [Zyrtec-D] 5-120 mg Tablet Extended Release 12 Hr 1 tab PO Q12H PRN (Reason: Allergy Symptoms) RF: 0 diphenhydramine HCl 25 mg Tablet 25 mg PO Q6H PRN (Reason: Allergy Symptoms) RF: 0 cholecalciferol (vitamin D3) [Vitamin D3] 1,000 unit Capsule 2,000 unit PO DAILY RF: 0 hydrocodone-acetaminophen 5-325 mg tablet 1 tab PO Q4-6H PRN (Reason: pain) Qty: 14 RF: 0 ketorolac 10 mg tablet 10 mg PO Q6H PRN (Reason: pain) Qty: 14 RF: 0 ondansetron 4 mg tablet,disintegrating 4 mg PO TID-QID PRN (Reason: nausea and vomiting) Qty: 10 RF: 0 carisoprodol 350 mg tablet 350 mg PO TID RF: 0 Referrals: Rolando Andrade [Other] <Brian Luna DO - Last Filed: 04/04/18 18:54> Cosign ED Attending Francoature Attestation: I was immediately available in the department for consultation. Documentation has been reviewed. I agree with assessment and plan.
--- NOTE | 2018-03-28 16:49 | DI.US.S_ITS ---
PROCEDURE: US PELVIC COMPLETE INDICATIONS: R. ovarian cyst, increased pain TECHNIQUE: Real-time scanning was performed of the pelvic organs, with image documentation. Additional endovaginal scanning was necessary due to incomplete visualization of the adnexal and endometrial structures by transabdominal scanning. COMPARISON: [facility], , US PELVIC COMPLETE, 03/25/2018, 17:12. FINDINGS: Transabdominal scanning: Limited scanning through the kidneys shows no hydronephrosis. No pathologic free abdominal or pelvic fluid. Endovaginal scanning: Uterus: Uterus is normal in size at 6.2 x 2.0 x 3.6 cm. The endometrium measures 2 mm in combined thickness. Ovaries: Right ovary is not well-seen. No gross adnexal masses seen. The left ovary measures 1.8 x 1.2 x 1.2 cm although only seen transabdominally. Peristalsing bowel seen in the right lower quadrant. However, the appendix is not clearly identified. IMPRESSION: Right ovary not visualized. No gross right adnexal mass or lesion seen. Otherwise, grossly unremarkable examination as above Dictated by: Andrew Andres M.D. on 03/28/2018 at 19:00 Approved by: Andrew Andres M.D. on 03/28/2018 at 19:02
[2018-03-28] MEDS: KETOROLAC 60 MG/2 ML VIAL IM (17:01)
[2018-03-28] MEDS: HYDROMORPHONE 2 MG INJ IM (17:02)
[2018-03-28] MEDS: ONDANSETRON 4 MG ODT PO (17:03)
[2018-03-28] MEDS: diphenhydrAMINE 25 MG TABLET PO (17:38)
--- NOTE | 2018-03-28 17:44 | DI.CT.S_ITS ---
PROCEDURE: CT ABDOMEN PELVIS W CON INDICATIONS: Right Lower quadrant pain. Adenexal pain, History of cyst. TECHNIQUE: After the administration of intravenous contrast, 5 mm thick sections acquired from the diaphragm to the symphysis. 5 mm coronal and sagittal reformats were acquired. For radiation dose reduction, the following was used: automated exposure control, adjustment of mA and/or kV according to patient size. COMPARISON: [facility], , PELVIC COMPLETE, 03/28/2018, 17:15. [facility], , PELVIC COMPLETE, 03/25/2018, 17:12. FINDINGS: Image quality: Excellent. ABDOMEN: Lung bases: Lung bases are clear. Heart size is normal. Solid organs: Liver is normal in size and enhancement. Gallbladder surgically absent. Biliary system is non dilated. Pancreas enhances normally. Spleen is normal in size and enhancement. No adrenal nodules. Kidneys demonstrate normal size and enhancement, without hydronephrosis. Peritoneum and bowel: No evidence of bowel obstruction. Large amount of stool seen throughout the colon. The appendix is seen in the right lower quadrant, and the tip may be borderline enlarged measuring 5-6 mm. There are internal areas of increased attenuation raising possibility of sub-5 mm appendicolith, versus debris. There is mild stranding adjacent to the tip of the appendix. No abscess. No free fluid or air. Nodes and vessels: No retroperitoneal or mesenteric adenopathy by size criteria. Aorta and inferior vena cava are normal in size. Miscellaneous: No ventral hernias. PELVIS: Genitourinary: Bladder wall thickness is normal. No definite adnexal cyst seen. Miscellaneous: No inguinal hernias or adenopathy. Bones: No suspicious bony lesions. No vertebral body compression fractures. IMPRESSION: Borderline enlargement of the distal appendix, with questionable periappendiceal fat stranding/inflammation. This raises the possibility of early acute or tip appendicitis. Intraluminal increased density suggesting debris/tiny appendicoliths. Please correlate clinically and with laboratory data. Large amount of stool in keeping with severe constipation. Elsewhere, no acute abnormality. Status post cholecystectomy. Findings were personally telephoned and discussed with Nataly BORJAS in the emergency department 1927 hours on 03/28/18. Dictated by: Andrew Andres M.D. on 03/28/2018 at 19:21 Approved by: Andrew Andres M.D. on 03/28/2018 at 19:30
[2018-03-28] MEDS: HYDROMORPHONE 1 MG INJ 0.5 MG IV (18:37)
[2018-03-28] MEDS: ONDANSETRON 4 MG/2 ML INJ IV (18:37)
[2018-03-28 18:42] LABS: Add Manual Diff / Slide Review NO; Basophils Percent Auto 0.7 % (0-2); Eosinophils Percent Auto 1.4 % (2-4); Hematocrit 40.3 % (36-46); Hemoglobin 13.8 g/dL (12.0-16.0); Lymphocytes Percent Auto 31.2 % (25-40); Mean Corpuscular HGB Conc 34.2 % (30-36); Mean Corpuscular Hemoglobin 33.3 PG (26-34); Mean Corpuscular Volume 97.2 fL (80-100); Monocytes Percent Auto 6.1 % (3-14); Neutrophils Absolute Auto 4900 /uL (3000-5900); Neutrophils Percent Auto 60.6 % (50-75); Platelet Count 295 X10^3/uL (150-400); Red Blood Cell Count 4.15 X10^6/uL (4.0-5.2); Red Cell Distribution Width 13.4 % (11.6-14.8); White Blood Cell Count 8.1 X10^3/uL (4.5-11.0)
[2018-03-28 18:57] LABS: Alanine Aminotransferase 13 IU/L (9-52); Albumin 3.9 g/dL (3.5-5.0); Albumin Globulin Ratio 1.2 (1.0-2.8); Alkaline Phosphatase 64 U/L (38-126); Aspartate Aminotransferase 21 IU/L (14-36); BUN Creatinine Ratio 11.7 (6-22); Bilirubin Total 0.3 mg/dL (0.2-1.3); Blood Urea Nitrogen 14 mg/dL (7-17); Calcium 8.5 mg/dL (8.4-10.2); Carbon Dioxide 20 mmol/L (22-32); Chloride 109 mmol/L (98-107); Estimated Glomerular Filt Rate 55.7 mL/min (>60); Globulin 3.2 g/dL (1.7-4.1); Glucose 95 mg/dL (70-100); HEMOLYSIS < 15 (0-50); Lipase 28 U/L (23-300); Potassium 3.9 mmol/L (3.4-5.1); Sodium 140 mmol/L (137-145); Total Protein 7.1 g/dL (6.3-8.2)
[2018-03-28] MEDS: SODIUM CHLORIDE 0.9% 1,000 ML 1000 ML IV (19:04)
[2018-03-28 19:12] VITALS: BP 105/50; PULSE 105; RESP 18; O2SAT 99
--- NOTE | 2018-03-28 20:16 | PM.CN ---
History of Present Illness Date Patient Seen: 03/28/18 Time Patient Seen: 20:16 Chief complaint: lower right abdominal pain Reason for consult: Abdominal pain Requesting provider: Nataly Oliveira Narrative: 22-year-old female with history of acute myelogenous leukemia now in remission for 6 years and multiple recurrent urinary tract infections who presents to the emergency department this evening for the 2nd time in 3 days complaining of persistent moderately severe right lower quadrant abdominal pain that began 5 days ago. At the time of her initial evaluation in the emergency department she was found to have a right ovarian cyst that was treated symptomatic leave for such. However, the patient states that over the last 48 to 72 hr she continues to have ongoing right-sided abdominal pain. Intermittently the pain is more severe than at other times but never completely resolved. She cannot find particularly comfortable position. She did have nausea and vomiting with the initial onset of her symptoms and again this morning. She has not really attempted to eat much throughout the day today. Denies any dysuria or hematuria. She states that these symptoms today feel distinctly different than her previous urinary tract infections. Her last treatment for such was approximately 2 months ago. She has had no fever or chills. She is passing flatus. Last bowel movement was today which she states was normal but she does feel mildly constipated. Does not feel subjectively distended. States that the pain is essentially sharp in nature but involves the right flank. No back pain, chest pain, or shortness of breath. She is having absolutely no abdominal pain anywhere else in the abdomen. Of note, her last menstrual cycle was 5 months ago. She had been having normal regular monthly cycles up to that time. Interestingly she has had no changes in her medications including her oral contraceptive pills. [facility] Medical History Amenorrhea (Acute) History of abnormal cervical Pap smear (Acute) History of chemotherapy (Acute) History of wisdom tooth extraction (Acute) Ovarian cyst (Acute) Recurrent urinary tract infection (Acute) AML (acute myeloblastic leukemia) (Resolved) Surgical History History of cholecystectomy (Acute) History of cholecystectomy (Resolved) Social History Smoking Status: Current every day smoker Comment: Resides in [place]. She is visiting the area and plans to return home in less than 2 days now. Meds Home Medications Medication Instructions Recorded Confirmed Type acetaminophen 1,000 mg PO Q6H PRN 03/25/18 03/28/18 History albuterol sulfate [Ventolin HFA] 1 puff INHALATION PRN PRN 03/25/18 03/28/18 History alprazolam 1 mg PO DAILY PRN 03/25/18 03/28/18 History cetirizine-pseudoephedrine 1 tab PO Q12H PRN 03/25/18 03/28/18 History [Zyrtec-D] cholecalciferol (vitamin D3) 2,000 unit PO DAILY 03/25/18 03/28/18 History [Vitamin D3] deferasirox [Jadenu] 1,440 mg PO BEDTIME 03/25/18 03/28/18 History diphenhydramine HCl 25 mg PO Q6H PRN 03/25/18 03/28/18 History fluticasone-vilanterol [Breo 1 puff INHALATION DAILY 03/25/18 03/28/18 History Ellipta] hydrocodone-acetaminophen 1 tab PO Q4-6H PRN #14 tab 03/25/18 03/28/18 Rx ketorolac 10 mg PO Q6H PRN #14 tab 03/25/18 03/28/18 Rx montelukast 10 mg PO QPM 03/25/18 03/28/18 History norethindrone-e.estradiol-iron 1 tab PO DAILY 03/25/18 03/28/18 History [Jayashree 24 Fe] ondansetron 4 mg PO TID-QID PRN #10 tab 03/25/18 03/28/18 Rx pantoprazole 40 mg PO QPM 03/25/18 03/28/18 History carisoprodol 350 mg PO TID 03/28/18 03/28/18 History hydrocodone-acetaminophen [[place]] 1 tab PO Q4-6H PRN #10 tab 03/28/18 Rx ondansetron HCl [Zofran] 4 mg PO Q6-8H PRN #7 tab 03/28/18 Rx Allergies Allergy/AdvReac Type Severity Reaction Status Date / Time cefixime Allergy Verified 03/28/18 16:14 rifampin Allergy Verified 03/28/18 16:14 topiramate [From Topamax] Allergy Verified 03/28/18 16:14 ketorolac [From Toradol] AdvReac Verified 03/28/18 16:14 metoclopramide [From Reglan] AdvReac Verified 03/28/18 16:14 Review of Systems Review of Systems All systems reviewed & are unremarkable except as noted in HPI and below Exam Vital Signs (past 8 hours): - 03/28/18 16:14 03/28/18 19:12 Temperature 98.5 F Pulse Rate 119 H 105 H Respiratory Rate 158 H 18 Blood Pressure 96/55 L Blood Pressure [Right Arm] 105/50 L Pulse Oximetry 100 99 Oxygen Delivery Method Room Air Narrative Exam Narrative: Well-nourished well-developed mildly obese female lying in the gurney in no acute distress. Family is at the bedside. She is able to position herself in the gurney without any significant pain or issues when I requested she moved from a lateral decubitus position to supine position. Temperature 98.5? here in the emergency department. She has been mildly tachycardic but sinus rhythm Blood pressure is normal. Other than tachycardia regular rhythm. No wheezes Abdomen is soft and nondistended. No obvious hernias. No inguinal lymphadenopathy on the right. No inguinal hernias. She is completely nontender throughout the abdomen other than the right lower quadrant region. However, she has no focal tenderness anywhere in the abdomen. Her pain extends along the right flank all the way to the paraspinous region. In fact, she is exquisitely tender to palpation in the right flank region which she states reproduces her pain. Extremities show no clubbing, cyanosis, or edema Objective Labs Result Diagrams: 03/28/18 18:32 03/28/18 18:32 Labs: Laboratory Results - last 24 hr 03/28/18 03/28/18 18:32 18:32 WBC 8.1 RBC 4.15 Hgb 13.8 Hct 40.3 MCV 97.2 MCH 33.3 MCHC 34.2 RDW 13.4 Plt Count 295 Neut % (Auto) 60.6 Lymph % (Auto) 31.2 [place] % (Auto) 6.1 Eos % (Auto) 1.4 L Baso % (Auto) 0.7 Neut # (Auto) 4900 Sodium 140 Potassium 3.9 Chloride 109 H Carbon Dioxide 20 L BUN 14 Creatinine 1.20 H Estimated GFR 55.7 L BUN/Creatinine Ratio 11.7 Glucose 95 Calcium 8.5 Total Bilirubin 0.3 AST 21 ALT 13 Alkaline Phosphatase 64 Total Protein 7.1 Albumin 3.9 Globulin 3.2 Albumin/Globulin Ratio 1.2 Lipase 28 I have reviewed her laboratory studies from her initial emergency department visit several days ago. I have also reviewed her pelvic ultrasound and a CT scan of the abdomen and pelvis done this evening. No free fluid. No free air. No bowel wall thickening. There is extensive stool throughout the entire colon. No dilated loops of bowel. No air-fluid levels. Kidneys, spleen, and liver appeared normal. No obvious kidney stone. Ovaries are not seen. No free fluid in the cul-de-sac. Uterus appeared grossly normal. The appendix is not seen on ultrasound at her initial visit. Joanna's ultrasound does not visualize the right ovary interestingly. I do not appreciate any inflammatory process anywhere in the right colonic mesentery. No significantly enlarged appendix. No abnormal calcifications. No appendicolith. However, the preliminary verbal report from the radiologist comments on a single image with potential enlargement at the very tip of the appendix with minimal fat stranding. No other abnormalities. Assessment & Plan Plan: Assessment/Plan Narrative: 22-year-old female with 5 day history of right-sided abdominal pain of unclear etiology. Possibility of ruptured ovarian cyst. I doubt appendicitis given a normal white blood cell count on 2 occasions, no fever, no significant compelling examination findings with atypical tenderness in the flank, 5 days a symptoms without obvious progression to appendicitis, and no compelling radiographic evidence for relevant inflammatory changes. She may have a recurrent UTI although her symptoms are not completely consistent with this and there is no evidence of nephrolithiasis. Urinalysis, however, was not particularly reliable due to contaminated specimen. At this point I do not see any indications for surgical intervention. I would consider straight cath urine specimen with potential for culture and possible antibiotics based on findings. I am mildly concerned about her history of abnormal Pap smear although this is clearly not relevant to the current acute episode. However, abnormal Pap smear in conjunction with 5 months of amenorrhea would warrant further gynecologic evaluation. She plans to see her clinical nurse specialist upon returning home to [place]. She may benefit from urology consultation as well for the multiple recurrent urinary tract infections. I discussed all the above with the patient and her family in detail. All questions were answered to her satisfaction, and she voiced understanding. We did discuss signs and symptoms of likely appendicitis that would warrant further intervention at that time. Again, she voiced understanding.
[2018-03-28 20:20] VITALS: BP 102/87; PULSE 101; RESP 18; TEMP 37.1; O2SAT 99
== END 2018-03-28 20:30 | disposition home or self-care (01) ==
PROVIDERS: Emergency Provider Internal Medicine
DX: R10.9 Unspecified abdominal pain (principal)
CPT/HCPCS: 36591; 74177; 76830; 76856; 80053; 81003; 81025; 83690; 85025; 96361; 96372; 96374; 96375; 99283; 99285; J1170; J1885; J2405; Q9967

== ENCOUNTER 2018-05-07 18:10 | Emergency (ER) | payer BC, SELFPAY ==
[2018-05-07 18:22] VITALS: BP 130/91; PULSE 103; RESP 16; TEMP 36.4; O2SAT 99; BMI 34.3
--- NOTE | 2018-05-07 18:48 | DI.CT.S_ITS ---
PROCEDURE: CT ABDOMEN PELVIS W CON INDICATIONS: abdominal pain endometriosis recent sx TECHNIQUE: After the administration of intravenous contrast, 5 mm thick sections acquired from the diaphragm to the symphysis. 5 mm coronal and sagittal reformats were acquired. For radiation dose reduction, the following was used: automated exposure control, adjustment of mA and/or kV according to patient size. COMPARISON: [facility], CT, CT ABDOMEN PELVIS W CON, 03/28/2018, 18:46. FINDINGS: Image quality: Excellent. ABDOMEN: Lung bases: Lung bases are clear. Heart size is normal. Solid organs: Liver is mildly prominent with steatosis. Gallbladder has been. Biliary system is non dilated. Pancreas enhances normally. Spleen is normal in size and enhancement. No adrenal nodules. Kidneys demonstrate normal size and enhancement, without hydronephrosis. Peritoneum and bowel: Bowel loops demonstrate normal wall thickness and caliber. No free fluid or air. Appendix is unremarkable. Nodes and vessels: No retroperitoneal or mesenteric adenopathy by size criteria. Aorta and inferior vena cava are normal in size. Miscellaneous: No ventral hernias. PELVIS: Genitourinary: Bladder wall thickness is normal. Miscellaneous: No inguinal hernias or adenopathy. Bones: No suspicious bony lesions. No vertebral body compression fractures. IMPRESSION: 1. Cholecystectomy. 2. No visualized acute abdominal or pelvic process. Dictated by: Sheila Dewey M.D. on 05/07/2018 at 20:57 Approved by: Sheila Dewey M.D. on 05/07/2018 at 21:02
--- NOTE | 2018-05-07 19:05 | ED.ABDPAIN ---
HPI - Abdominal Pain General Chief Complaint: Abdominal Pain Stated Complaint: states pelvic pain with with nausea and vomiting Time Seen by Provider: 05/07/18 18:29 Source: patient Mode of arrival: ambulatory Limitations: no limitations History of Present Illness HPI narrative: Patient is a 22-year-old female who was recently diagnosed with endometriosis. She has been having abdominal discomfort ongoing for the last 2 months. She finally went to her OBGYN in [place] where she had laparoscopic surgery 2 weeks ago and diagnosed with endometriosis. She said that she has been doing well until 2 days ago. She now has pain at her incision sites and pain in her right lower quadrant which is where she said the endometriosis is the worst. She has been taking ketorolac around the clock a total 40 mg today and Tylenol around the clock as well a total of 2000 mg today. She denies painful or frequent urination sometimes feels nauseated no vomiting. MD complaint: abdominal pain Related Data Home Medications Medication Instructions Recorded Confirmed acetaminophen 1,000 mg PO Q6H PRN 03/25/18 03/28/18 albuterol sulfate [Ventolin HFA] 1 puff INHALATION PRN PRN 03/25/18 03/28/18 alprazolam 1 mg PO DAILY PRN 03/25/18 03/28/18 cetirizine-pseudoephedrine 1 tab PO Q12H PRN 03/25/18 03/28/18 [Zyrtec-D] cholecalciferol (vitamin D3) 2,000 unit PO DAILY 03/25/18 03/28/18 [Vitamin D3] deferasirox [Jadenu] 1,440 mg PO BEDTIME 03/25/18 03/28/18 diphenhydramine HCl 25 mg PO Q6H PRN 03/25/18 03/28/18 fluticasone-vilanterol [Breo 1 puff INHALATION DAILY 03/25/18 03/28/18 Ellipta] montelukast 10 mg PO QPM 03/25/18 03/28/18 norethindrone-e.estradiol-iron 1 tab PO DAILY 03/25/18 03/28/18 [Jayashree 24 Fe] pantoprazole 40 mg PO QPM 03/25/18 03/28/18 carisoprodol 350 mg PO TID 11/12/18 11/12/18 Previous Rx's Medication Instructions Recorded hydrocodone-acetaminophen 1 tab PO Q4-6H PRN #14 tab 03/25/18 ketorolac 10 mg PO Q6H PRN #14 tab 03/25/18 ondansetron 4 mg PO TID-QID PRN #10 tab 03/25/18 hydrocodone-acetaminophen [[place]] 1 tab PO Q4-6H PRN #10 tab 03/28/18 ondansetron HCl [Zofran] 4 mg PO Q6-8H PRN #7 tab 03/28/18 Allergies Allergy/AdvReac Type Severity Reaction Status Date / Time cefixime Allergy Verified 05/07/18 18:21 rifampin Allergy Verified 05/07/18 18:21 topiramate [From Topamax] Allergy Verified 05/07/18 18:21 metoclopramide [From Reglan] AdvReac Verified 05/07/18 18:21 Review of Systems Review of Systems GENERAL: Denies chills, fatigue, malaise, fever, sweats, travel HEENT: Denies sinus pain, ear pain, sore throat, difficulty swallowing, neck pain RESPIRATORY: Denies dyspnea, cough, wheezing, hemoptysis, sputum. CARDIOVASCULAR: Denies chest pain, palpitations, orthopnea, edema GASTROINTESTINAL: See HPI : Denies dysuria, frequency, incontinence, hematuria, urinary retention, flank pain. MUSCULOSKELETAL: Denies weakness, joint pain, or bony pain SKIN: No rash, no erythema, no pruritus NEUROLOGIC: Denies weakness, dizziness, headache, numbness, change in speech, confusion PSYCHIATRIC: No concerning psychosocial issues. 12 point review of systems is negative except for those stated above and HPI PFSH Medical History Amenorrhea (Acute) Endometriosis determined by laparoscopy (Acute) History of abnormal cervical Pap smear (Acute) History of chemotherapy (Acute) History of wisdom tooth extraction (Acute) Ovarian cyst (Acute) Recurrent urinary tract infection (Acute) AML (acute myeloblastic leukemia) (Resolved) Surgical History History of cholecystectomy (Acute) History of cholecystectomy (Resolved) Social History Smoking Status: Former smoker Exam Initial Vital Signs Initial Vital Signs: Vital Signs Temperature 97.6 F 12/22/18 18:22 Pulse Rate 103 H 05/07/18 18:22 Respiratory Rate 16 05/07/18 18:22 Blood Pressure 130/91 H 05/07/18 18:22 Pulse Oximetry 99 05/07/18 18:22 GENERAL: Young female appears in mild pain HEENT: Head atraumatic,EOMI, pupils reactive CARDIOVASCULAR: Regular rate and rhythm without murmurs, rubs or gallops. RESPIRATORY: Breath sounds equal bilaterally, no wheezes rales or rhonchi. ABDOMEN: Soft, low while the right lower quadrant pain no guarding or rebound incision sites at umbilicus and lower abdomen are clean and dry no sign of infection seems to be mostly healed : No CVA tenderness EXTREMITIES: Normal range of motion, no clubbing or edema. Neurovascularly intact NEUROLOGICAL: Alert and oriented x4.Normal gait and speech. Cranial nerves II through XII grossly intact. SKIN: Warm, dry, no laceration, no petechiae, no rashes or lesions. Course Orders Ordered: ED Orders 05/07/18 18:48 CT abdomen pelvis w con Stat 05/07/18 19:44 Complete Blood Count AUTO DIFF Stat Comprehensive Metabolic Panel Stat Lipase Stat Discontinued Medications Diphenhydramine HCl (Benadryl) 25 mg IV NOW ONE Stop: 05/07/18 20:02 Last Admin: 05/07/18 20:06 Dose: 25 mg Sodium Chloride (Normal Saline 0.9%) 1,000 mls @ 1,000 mls/hr IV CONT SANDIP Last Infusion: 05/07/18 21:53 Dose: 0 mls/hr Admin: 05/07/18 19:52 Dose: 1,000 mls/hr Morphine Sulfate (Morphine) 4 mg IV NOW ONE Stop: 05/07/18 18:50 Last Admin: 05/07/18 19:51 Dose: 4 mg Ondansetron HCl (Zofran) 4 mg IV NOW ONE Stop: 05/07/18 19:49 Last Admin: 05/07/18 19:51 Dose: 4 mg Vital Signs - 8 hr 05/07/18 18:22 05/07/18 20:15 05/07/18 21:33 Temperature 97.6 F Pulse Rate 103 H 87 86 Respiratory Rate 16 18 15 Blood Pressure 130/91 H Blood Pressure [Left Arm] 118/69 120/62 Pulse Oximetry 99 100 100 MDM - Abdominal Pain Lab Data Attestation: I reviewed the patient's lab results. Result diagrams: 05/07/18 19:44 05/07/18 19:44 Lab Results 05/07/18 05/07/18 Range/Units 19:44 19:44 WBC 7.7 (4.5-11.0) X10^3/uL RBC 4.30 (4.0-5.2) X10^6/uL Hgb 13.9 (12.0-16.0) g/dL Hct 41.2 (36-46) % MCV 95.7 (80-100) fL MCH 32.2 (26-34) PG MCHC 33.7 (30-36) % RDW 13.4 (11.6-14.8) % Plt Count 316 (150-400) X10^3/uL Neut % (Auto) 63.7 (50-75) % Lymph % (Auto) 26.7 (25-40) % [place] % (Auto) 7.2 (3-14) % Eos % (Auto) 1.7 L (2-4) % Baso % (Auto) 0.7 (0-2) % Neut # (Auto) 4900 (1418-2428) /uL Sodium 141 (137-145) mmol/L Potassium 4.1 (3.4-5.1) mmol/L Chloride 110 H (98-107) mmol/L Carbon Dioxide 17 L (22-32) mmol/L BUN 13 (7-17) mg/dL Creatinine 1.10 H (0.52-1.04) mg/dL Estimated GFR > 60.0 (>60) mL/min BUN/Creatinine Ratio 11.8 (6-22) Glucose 92 (70-100) mg/dL Calcium 9.1 (8.4-10.2) mg/dL Total Bilirubin 0.5 (0.2-1.3) mg/dL AST 25 (14-36) IU/L ALT 15 (9-52) IU/L Alkaline Phosphatase 56 (38-126) U/L Total Protein 7.4 (6.3-8.2) g/dL Albumin 4.2 (3.5-5.0) g/dL Globulin 3.2 (1.7-4.1) g/dL Albumin/Globulin Ratio 1.3 (1.0-2.8) Lipase 41 (23-300) U/L Point of care testing: Point of Care Testing Test Results Negative Urine Dip Bedside Urine Glucose Negative Bedside Urine Bilirubin - Negative Bedside Urine Ketone - Negative Urine Specific [place] 1.010 Bedside Urine Occult Blood - Negative Bedside Urine pH 6.0 Bedside Urine Protein - Negative Bedside Urine Urobilinogen - Negative Bedside Urine Nitrite - Negative Bedside Urine Leukocytes - Negative Esterase Imaging Data CT scan - abdomen: Radiologist's impression: PROCEDURE: CT ABDOMEN PELVIS W CON INDICATIONS: abdominal pain endometriosis recent sx TECHNIQUE: After the administration of intravenous contrast, 5 mm thick sections acquired from the diaphragm to the symphysis. 5 mm coronal and sagittal reformats were acquired. For radiation dose reduction, the following was used: automated exposure control, adjustment of mA and/or kV according to patient size. COMPARISON: [facility], CT, CT ABDOMEN PELVIS W CON, 03/28/2018, 18:46. FINDINGS: Image quality: Excellent. ABDOMEN: Lung bases: Lung bases are clear. Heart size is normal. Solid organs: Liver is mildly prominent with steatosis. Gallbladder has been. Biliary system is non dilated. Pancreas enhances normally. Spleen is normal in size and enhancement. No adrenal nodules. Kidneys demonstrate normal size and enhancement, without hydronephrosis. Peritoneum and bowel: Bowel loops demonstrate normal wall thickness and caliber. No free fluid or air. Appendix is unremarkable. Nodes and vessels: No retroperitoneal or mesenteric adenopathy by size criteria. Aorta and inferior vena cava are normal in size. Miscellaneous: No ventral hernias. PELVIS: Genitourinary: Bladder wall thickness is normal. Miscellaneous: No inguinal hernias or adenopathy. Bones: No suspicious bony lesions. No vertebral body compression fractures. IMPRESSION: 1. Cholecystectomy. 2. No visualized acute abdominal or pelvic process. Dictated by: Sheila Dewey M.D. on 05/07/2018 at 20:57 MDM Narrative Medical decision making narrative: Patient received a full L of IV fluids. She says her abdominal pain is better. This is likely her endometriosis causing the pain. No abnormality on CT of surgical complication. Recommended that she continue her OB GYNs recommendation and get local follow-up. Discharge Plan Departure Patient Disposition: Home Clinical Impression: Endometriosis, Abdominal pain Discharge Date/Time: 05/07/18 21:59 Interventions: ED Discharge Assessment Last Done: 05/07/18 21:57 Instructions: Endometriosis, Acute Abdominal Pain Activity Restrictions/Additional Instructions: *You have been diagnosed with abdominal pain likely related to endometriosis *What to do: At this time abdominal CT are blood work and urine show some mild dehydration otherwise no abnormality *Continue to take medications as directed *Follow up with your primary care provider in 2-3 days *Return to ER if you should have increasing pain, fever, persistent vomiting, inability to take fluids or any new, worsening or concerning symptoms Prescriptions: No Action alprazolam 1 mg tablet 1 mg PO DAILY PRN (Reason: Anxiety) RF: 0 pantoprazole 40 mg tablet,delayed release (DR/EC) 40 mg PO QPM RF: 0 montelukast 10 mg tablet 10 mg PO QPM RF: 0 albuterol sulfate [Ventolin HFA] 90 mcg/actuation HFA aerosol inhaler 1 puff Inhalation PRN PRN (Reason: Shortness Of Breath) RF: 0 norethindrone-e.estradiol-iron [Jayashree 24 Fe] 1 mg-20 mcg (24)/75 mg (4) tablet 1 tab PO DAILY RF: 0 fluticasone-vilanterol [Breo Ellipta] 200-25 mcg/dose blister with device 1 puff Inhalation DAILY RF: 0 deferasirox [Jadenu] 360 mg tablet 1,440 mg PO BEDTIME RF: 0 acetaminophen 500 mg Tablet 1,000 mg PO Q6H PRN (Reason: pain) RF: 0 cetirizine-pseudoephedrine [Zyrtec-D] 5-120 mg Tablet Extended Release 12 Hr 1 tab PO Q12H PRN (Reason: Allergy Symptoms) RF: 0 diphenhydramine HCl 25 mg Tablet 25 mg PO Q6H PRN (Reason: Allergy Symptoms) RF: 0 cholecalciferol (vitamin D3) [Vitamin D3] 1,000 unit Capsule 2,000 unit PO DAILY RF: 0 hydrocodone-acetaminophen 5-325 mg tablet 1 tab PO Q4-6H PRN (Reason: pain) Qty: 14 RF: 0 ketorolac 10 mg tablet 10 mg PO Q6H PRN (Reason: pain) Qty: 14 RF: 0 ondansetron 4 mg tablet,disintegrating 4 mg PO TID-QID PRN (Reason: nausea and vomiting) Qty: 10 RF: 0 carisoprodol 350 mg tablet 350 mg PO TID RF: 0 hydrocodone-acetaminophen [[place]] 5-325 mg tablet 1 tab PO Q4-6H PRN (Reason: acute abdominal/pelvic pain) Qty: 10 RF: 0 ondansetron HCl [Zofran] 4 mg tablet 4 mg PO Q6-8H PRN (Reason: nausea and vomiting) Qty: 7 RF: 0 Referrals: [facility] [Provider Group] [facility] [Provider Group] [facility] [Provider Group] [facility] [Provider Group]
[2018-05-07 19:51] LABS: Add Manual Diff / Slide Review NO; Basophils Percent Auto 0.7 % (0-2); Eosinophils Percent Auto 1.7 % (2-4); Hematocrit 41.2 % (36-46); Hemoglobin 13.9 g/dL (12.0-16.0); Lymphocytes Percent Auto 26.7 % (25-40); Mean Corpuscular HGB Conc 33.7 % (30-36); Mean Corpuscular Hemoglobin 32.2 PG (26-34); Mean Corpuscular Volume 95.7 fL (80-100); Monocytes Percent Auto 7.2 % (3-14); Neutrophils Absolute Auto 4900 /uL (1500-7000); Neutrophils Percent Auto 63.7 % (50-75); Platelet Count 316 X10^3/uL (150-400); Red Cell Distribution Width 13.4 % (11.6-14.8); White Blood Cell Count 7.7 X10^3/uL (4.5-11.0)
[2018-05-07] MEDS: MORPHINE 4 MG/ML INJ IV (19:51)
[2018-05-07] MEDS: ONDANSETRON 4 MG/2 ML INJ IV (19:51)
[2018-05-07] MEDS: SODIUM CHLORIDE 0.9% 1,000 ML 1000 ML IV (19:52)
[2018-05-07] MEDS: diphenhydrAMINE 50 MG/ML VIAL 25 MG IV (20:06)
[2018-05-07 20:15] VITALS: BP 118/69; PULSE 87; RESP 18; O2SAT 100
[2018-05-07 20:38] LABS: Alanine Aminotransferase 15 IU/L (9-52); Albumin 4.2 g/dL (3.5-5.0); Albumin Globulin Ratio 1.3 (1.0-2.8); Alkaline Phosphatase 56 U/L (38-126); Aspartate Aminotransferase 25 IU/L (14-36); BUN Creatinine Ratio 11.8 (6-22); Bilirubin Total 0.5 mg/dL (0.2-1.3); Blood Urea Nitrogen 13 mg/dL (7-17); Calcium 9.1 mg/dL (8.4-10.2); Carbon Dioxide 17 mmol/L (22-32); Chloride 110 mmol/L (98-107); Estimated Glomerular Filt Rate > 60.0 mL/min (>60); Globulin 3.2 g/dL (1.7-4.1); Glucose 92 mg/dL (70-100); HEMOLYSIS 37 (0-50); Lipase 41 U/L (23-300); Potassium 4.1 mmol/L (3.4-5.1); Sodium 141 mmol/L (137-145); Total Protein 7.4 g/dL (6.3-8.2)
[2018-05-07 21:33] VITALS: BP 120/62; PULSE 86; RESP 15; O2SAT 100
== END 2018-05-07 21:59 | disposition home or self-care (01) ==
PROVIDERS: Emergency Provider Emergency Medicine
DX: N80.9 Endometriosis, unspecified (principal); R10.9 Unspecified abdominal pain
CPT/HCPCS: 36591; 74177; 80053; 81003; 81025; 83690; 85025; 96361; 96374; 96375; 99283; 99285; J1200; J2270; J2405; Q9967

== ENCOUNTER 2018-05-22 19:59 | Emergency (ER) | payer BC, SELFPAY ==
[2018-05-22 20:29] VITALS: BP 136/54; PULSE 115; RESP 24; TEMP 37; O2SAT 99; BMI 32.4
--- NOTE | 2018-05-22 20:35 | ED_ITS ---
HPI - Abdominal Pain General Chief Complaint: Abdominal Pain Stated Complaint: abdominal pain under belly button Time Seen by Provider: 05/22/18 20:35 Source: patient Mode of arrival: ambulatory Limitations: no limitations History of Present Illness HPI narrative: Patient is a 22-year-old female who on April underwent a diagnostic laparoscopy to evaluate for endometriosis. She was told that she had endometriosis. This was done at a hospital in [place]. I do not have the surgical notes for review. She states that she has lower abdomen and right lower quadrant pain. She states this is different than her endometriosis pain. Has nausea and vomiting. No change in bowel habits. No fevers. Has been seen multiple times in the past for abdominal pain however she states this is different. Related Data Home Medications Medication Instructions Recorded Confirmed acetaminophen 1,000 mg PO Q6H PRN 03/25/18 03/28/18 albuterol sulfate [Ventolin HFA] 1 puff INHALATION PRN PRN 03/25/18 03/28/18 alprazolam 1 mg PO DAILY PRN 03/25/18 05/22/18 cetirizine-pseudoephedrine 1 tab PO Q12H PRN 03/25/18 03/28/18 [Zyrtec-D] cholecalciferol (vitamin D3) 2,000 unit PO DAILY 03/25/18 03/28/18 [Vitamin D3] deferasirox [Jadenu] 1,440 mg PO BEDTIME 03/25/18 03/28/18 diphenhydramine HCl 25 mg PO Q6H PRN 03/25/18 03/28/18 fluticasone-vilanterol [Breo 1 puff INHALATION DAILY 03/25/18 03/28/18 Ellipta] montelukast 10 mg PO QPM 03/25/18 03/28/18 norethindrone-e.estradiol-iron 1 tab PO DAILY 03/25/18 03/28/18 [Jayashree 24 Fe] pantoprazole 40 mg PO QPM 03/25/18 03/28/18 carisoprodol 350 mg PO TID 03/28/18 03/28/18 Previous Rx's Medication Instructions Recorded hydrocodone-acetaminophen 1 tab PO Q4-6H PRN #14 tab 03/25/18 ketorolac 10 mg PO Q6H PRN #14 tab 03/25/18 ondansetron 4 mg PO TID-QID PRN #10 tab 03/25/18 hydrocodone-acetaminophen [Jelm] 1 tab PO Q4-6H PRN #10 tab 03/28/18 ondansetron HCl [Zofran] 4 mg PO Q6-8H PRN #7 tab 03/28/18 hydrocodone-acetaminophen [Jelm] 1 tab PO Q6H PRN #7 tab 05/23/18 ondansetron 4 mg PO Q6-8H PRN #10 tab 05/23/18 Allergies Allergy/AdvReac Type Severity Reaction Status Date / Time cefixime Allergy Verified 05/22/18 20:33 rifampin Allergy Verified 05/22/18 20:33 topiramate [From Topamax] Allergy Verified 05/22/18 20:33 metoclopramide [From Reglan] AdvReac Verified 05/22/18 20:33 Review of Systems Constitutional Denies fever(s) and Denies headache(s) ENT Ears, Nose, Mouth, and Throat: Denies headache(s) Cardiovascular Denies chest pain and Denies dyspnea Respiratory Denies dyspnea Gastrointestinal Gastrointestinal: Reports abdominal pain, Denies change in stool character, Reports nausea and Denies vomiting Genitourinary Denies dysuria and Denies vaginal discharge Musculoskeletal Denies myalgias and Denies arthralgias Integumentary/Breasts Denies rash Neurologic Denies headache(s) Hematologic/Lymphatic Comments: Not on anticoagulation PFSH Medical History Amenorrhea (Acute) Endometriosis determined by laparoscopy (Acute) History of abnormal cervical Pap smear (Acute) History of chemotherapy (Acute) History of wisdom tooth extraction (Acute) Ovarian cyst (Acute) Recurrent urinary tract infection (Acute) AML (acute myeloblastic leukemia) (Resolved) Social History Smoking Status: Former smoker Exam Initial Vital Signs Initial Vital Signs: Vital Signs Temperature 98.6 F 05/22/18 20:29 Pulse Rate 115 H 05/22/18 20:29 Respiratory Rate 24 05/22/18 20:29 Blood Pressure 136/54 L 05/22/18 20:29 Pulse Oximetry 99 05/22/18 20:29 Const General: cooperative, well developed, well groomed and anxious Orientation: alert and oriented x3 HENMT Head: normal to inspection and normocephalic Resp Effort & Inspection: normal respiratory effort Auscultation: clear to auscultation bilaterally Cardio Rate: regular rate Rhythm: regular rhythm Pulses: radial pulses present GI Inspection: non-distended Palpation: soft, No firm, No guarding and tender (Right lower quadrant) Back/Spine/Pelvis Back: No CVA tenderness Skin Lesions: no lesions Rashes: no rashes Neuro General: alert, awake and oriented x3 Cognition: normal cognition Speech: speech normal Gait: normal gait Extrem General: normal to inspection and capillary refill normal Psych Appearance: grossly normal and well kempt Course Orders Ordered: ED Orders 05/22/18 20:46 CT abdomen pelvis w con Stat 05/22/18 21:00 Ictotest Urine Stat Urine Culture Stat Urine Microscopic Stat 05/22/18 21:32 Complete Blood Count AUTO DIFF Stat Comprehensive Metabolic Panel Stat Lactate (Lactic Acid) Stat 05/22/18 22:24 US pelvic complete Stat Discontinued Medications Hydromorphone HCl (Dilaudid) 0.5 mg IV NOW ONE Stop: 05/22/18 22:21 Last Admin: 05/22/18 22:25 Dose: 0.5 mg Sodium Chloride (Normal Saline 0.9%) 1,000 mls @ 1,000 mls/hr IV BOLUS ONE Stop: 05/22/18 21:43 Last Infusion: 05/22/18 22:30 Dose: 0 mls/hr Admin: 05/22/18 21:08 Dose: 1,000 mls/hr Lorazepam (Ativan) 0.5 mg IV NOW ONE Stop: 05/22/18 22:34 Last Admin: 05/22/18 22:36 Dose: 0.5 mg Morphine Sulfate (Morphine) 4 mg IV NOW ONE Stop: 05/22/18 20:45 Last Admin: 05/22/18 21:08 Dose: 4 mg Ondansetron HCl (Zofran) 4 mg IV NOW ONE Stop: 05/22/18 20:45 Last Admin: 05/22/18 21:08 Dose: 4 mg Vital Signs - 8 hr 05/22/18 22:35 05/22/18 23:46 05/23/18 00:42 Temperature 98.2 F Pulse Rate 105 H 104 H Respiratory Rate 22 16 Blood Pressure 111/54 L Blood Pressure [Right Arm] 125/83 126/45 L Pulse Oximetry 97 96 MDM - Abdominal Pain Lab Data Attestation: I reviewed the patient's lab results. Result diagrams: 05/22/18 21:32 05/22/18 21:32 Lab Results 05/22/18 05/22/18 05/22/18 Range/Units 21:00 21:32 21:32 WBC 7.7 (4.5-11.0) X10^3/uL RBC 4.09 (4.0-5.2) X10^6/uL Hgb 13.4 (12.0-16.0) g/dL Hct 39.1 (36-46) % MCV 95.5 (80-100) fL MCH 32.7 (26-34) PG MCHC 34.3 (30-36) % RDW 12.9 (11.6-14.8) % Plt Count 225 (150-400) X10^3/uL Neut % (Auto) 54.8 (50-75) % Lymph % (Auto) 34.3 (25-40) % Miller % (Auto) 7.8 (3-14) % Eos % (Auto) 2.4 (2-4) % Baso % (Auto) 0.7 (0-2) % Neut # (Auto) 4200 (2264-7112) /uL Sodium 140 (137-145) mmol/L Potassium 3.7 (3.4-5.1) mmol/L Chloride 110 H (98-107) mmol/L Carbon Dioxide 21 L (22-32) mmol/L BUN 18 H (7-17) mg/dL Creatinine 1.30 H (0.52-1.04) mg/dL Estimated GFR 50.8 L (>60) mL/min BUN/Creatinine Ratio 13.8 (6-22) Glucose 79 (70-100) mg/dL Lactate (0.7-2.1) mmol/L Calcium 8.5 (8.4-10.2) mg/dL Total Bilirubin 0.5 (0.2-1.3) mg/dL AST 24 (14-36) IU/L ALT 19 (9-52) IU/L Alkaline Phosphatase 51 (38-126) U/L Total Protein 6.7 (6.3-8.2) g/dL Albumin 3.6 (3.5-5.0) g/dL Globulin 3.1 (1.7-4.1) g/dL Albumin/Globulin Ratio 1.2 (1.0-2.8) Urine Ictotest Negative (Negative) Urine RBC None seen (0-5/HPF) Urine WBC 1-5/hpf (0-5/HPF) Ur Squamous Epith Cells 1-5 /hpf D Calcium Oxalate Crystal Few H (None) Urine Bacteria Many (>30) H (None) Granular Casts 1-5/lpf (None) Urine Mucus 1+ H (Negative) Ur Culture Indicated? Specimen cultured Micro UA Comment Not Reportable 05/22/18 Range/Units 21:32 WBC (4.5-11.0) X10^3/uL RBC (4.0-5.2) X10^6/uL Hgb (12.0-16.0) g/dL Hct (36-46) % MCV (80-100) fL MCH (26-34) PG MCHC (30-36) % RDW (11.6-14.8) % Plt Count (150-400) X10^3/uL Neut % (Auto) (50-75) % Lymph % (Auto) (25-40) % Miller % (Auto) (3-14) % Eos % (Auto) (2-4) % Baso % (Auto) (0-2) % Neut # (Auto) (3752-0317) /uL Sodium (137-145) mmol/L Potassium (3.4-5.1) mmol/L Chloride (98-107) mmol/L Carbon Dioxide (22-32) mmol/L BUN (7-17) mg/dL Creatinine (0.52-1.04) mg/dL Estimated GFR (>60) mL/min BUN/Creatinine Ratio (6-22) Glucose (70-100) mg/dL Lactate 0.9 (0.7-2.1) mmol/L Calcium (8.4-10.2) mg/dL Total Bilirubin (0.2-1.3) mg/dL AST (14-36) IU/L ALT (9-52) IU/L Alkaline Phosphatase (38-126) U/L Total Protein (6.3-8.2) g/dL Albumin (3.5-5.0) g/dL Globulin (1.7-4.1) g/dL Albumin/Globulin Ratio (1.0-2.8) Urine Ictotest (Negative) Urine RBC (0-5/HPF) Urine WBC (0-5/HPF) Ur Squamous Epith Cells Calcium Oxalate Crystal (None) Urine Bacteria (None) Granular Casts (None) Urine Mucus (Negative) Ur Culture Indicated? Micro UA Comment Point of care testing: Point of Care Testing Test Results Negative Urine Dip Bedside Urine Glucose Negative Bedside Urine Bilirubin + 1 Bedside Urine Ketone - Negative Urine Specific [place] 1.025 Bedside Urine Occult Blood - Negative Bedside Urine pH 6.0 Bedside Urine Protein + 30 Bedside Urine Urobilinogen - Negative Bedside Urine Nitrite - Negative Bedside Urine Leukocytes - Negative Esterase Imaging Data CT scan - abdomen: Radiologist's impression: PROCEDURE: CT ABDOMEN PELVIS W CON INDICATIONS: Right sided abdominal pain. TECHNIQUE: After the administration of oral and intravenous contrast, 5 mm thick sections acquired from the diaphragms to the symphysis. 5 mm thick coronal and sagittal reformats were performed. For radiation dose reduction, the following was used: automated exposure control, adjustment of mA and/or kV according to patient size. COMPARISON: None. FINDINGS: Image quality: Excellent. ABDOMEN: Lung bases: There is minimal dependent atelectasis. Heart size is normal. Solid organs: The right hepatic dome is incompletely included on the current study. The visualized liver demonstrates no focal hepatic lesions. Gallbladder is surgically absent. There is mild biliary ductal dilatation, with the common bile duct measuring approximately 0.8 cm likely related to prior cholecystectomy. Pancreas enhances normally. Spleen is normal in size and enhancement. No adrenal nodules. Kidneys are normal in size and enhancement, without hydronephrosis. Peritoneum and bowel: Stomach, small bowel, and colon loops are normal in caliber and wall thickness. The appendix is normal in appearance. No free fluid or air. Nodes and vessels: No retroperitoneal or mesenteric adenopathy. Aorta and inferior vena cava are normal in caliber. Miscellaneous: No ventral hernias. PELVIS: Genitourinary: Bladder wall thickness is normal. The uterus and ovaries appear within normal size limits. Miscellaneous: No inguinal hernias or adenopathy. Bones: No suspicious bony lesions. No vertebral body compression fractures. IMPRESSION: 1. No definite acute intra-abdominal abnormality. Specifically, no evidence of appendicitis. 2. Mild biliary ductal dilatation likely related to prior cholecystectomy. Recommend correlation with laboratory values. Dictated by: Hernando Lockwood M.D. on 05/22/2018 at 22:05 Approved by: Hernando Lockwood M.D. on 05/22/2018 at 22:09 Pelvic ultrasound: Radiologist's impression: Ovaries not seen but no adnexal masses. No free fluid MDM Narrative Medical decision making narrative: Patient's CT scan shows no surgical pathology. Ultrasound shows no surgical pathology. The ovaries were not seen however given her history and physical and prior workup I have low suspicion for ovarian torsion. Patient did have an acute anxiety attack here in the ER. This did improve with Ativan. Had a long discussion with the patient regarding her symptoms. 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 A long discussion with the patient's regarding the importance of this so that she could get a primary care doctor and also a retail merchandiser technician provider here in the local area not have to go to [place] under her mother's insurance. Patient expressed understanding of this. Will hold on further workup for now. Patient was given return precautions. She expressed understanding and agreement with plan. Discharge Plan Departure Patient Disposition: Home Clinical Impression: Abdominal pain Discharge Date/Time: 05/23/18 00:44 Interventions: ED Discharge Assessment Last Done: 05/23/18 00:42 Instructions: DI for Abdominal Pain-Adult Activity Restrictions/Additional Instructions: Take the medications as directed. Continue the rest of your medications as directed. I highly recommend that [place] . This will get to establish with a primary care doctor in this area and also a retail merchandiser technician doctor this area which is which you need given your diagnosis of endometriosis. Return to the emergency department for any new symptoms Prescriptions: New hydrocodone-acetaminophen [Jelm] 5-325 mg tablet 1 tab PO Q6H PRN (Reason: pain) Qty: 7 RF: 0 ondansetron 4 mg tablet,disintegrating 4 mg PO Q6-8H PRN (Reason: nausea and vomiting) Qty: 10 RF: 0 No Action alprazolam 1 mg tablet 1 mg PO DAILY PRN (Reason: Anxiety) RF: 0 pantoprazole 40 mg tablet,delayed release (DR/EC) 40 mg PO QPM RF: 0 montelukast 10 mg tablet 10 mg PO QPM RF: 0 albuterol sulfate [Ventolin HFA] 90 mcg/actuation HFA aerosol inhaler 1 puff Inhalation PRN PRN (Reason: Shortness Of Breath) RF: 0 norethindrone-e.estradiol-iron [Jayashree 24 Fe] 1 mg-20 mcg (24)/75 mg (4) tablet 1 tab PO DAILY RF: 0 fluticasone-vilanterol [Breo Ellipta] 200-25 mcg/dose blister with device 1 puff Inhalation DAILY RF: 0 deferasirox [Jadenu] 360 mg tablet 1,440 mg PO BEDTIME RF: 0 acetaminophen 500 mg Tablet 1,000 mg PO Q6H PRN (Reason: pain) RF: 0 cetirizine-pseudoephedrine [Zyrtec-D] 5-120 mg Tablet Extended Release 12 Hr 1 tab PO Q12H PRN (Reason: Allergy Symptoms) RF: 0 diphenhydramine HCl 25 mg Tablet 25 mg PO Q6H PRN (Reason: Allergy Symptoms) RF: 0 cholecalciferol (vitamin D3) [Vitamin D3] 1,000 unit Capsule 2,000 unit PO DAILY RF: 0 hydrocodone-acetaminophen 5-325 mg tablet 1 tab PO Q4-6H PRN (Reason: pain) Qty: 14 RF: 0 ketorolac 10 mg tablet 10 mg PO Q6H PRN (Reason: pain) Qty: 14 RF: 0 ondansetron 4 mg tablet,disintegrating 4 mg PO TID-QID PRN (Reason: nausea and vomiting) Qty: 10 RF: 0 carisoprodol 350 mg tablet 350 mg PO TID RF: 0 hydrocodone-acetaminophen [Jelm] 5-325 mg tablet 1 tab PO Q4-6H PRN (Reason: acute abdominal/pelvic pain) Qty: 10 RF: 0 ondansetron HCl [Zofran] 4 mg tablet 4 mg PO Q6-8H PRN (Reason: nausea and vomiting) Qty: 7 RF: 0
--- NOTE | 2018-05-22 20:46 | DI.CT.S_ITS ---
PROCEDURE: CT ABDOMEN PELVIS W CON INDICATIONS: Right sided abdominal pain. TECHNIQUE: After the administration of oral and intravenous contrast, 5 mm thick sections acquired from the diaphragms to the symphysis. 5 mm thick coronal and sagittal reformats were performed. For radiation dose reduction, the following was used: automated exposure control, adjustment of mA and/or kV according to patient size. COMPARISON: None. FINDINGS: Image quality: Excellent. ABDOMEN: Lung bases: There is minimal dependent atelectasis. Heart size is normal. Solid organs: The right hepatic dome is incompletely included on the current study. The visualized liver demonstrates no focal hepatic lesions. Gallbladder is surgically absent. There is mild biliary ductal dilatation, with the common bile duct measuring approximately 0.8 cm likely related to prior cholecystectomy. Pancreas enhances normally. Spleen is normal in size and enhancement. No adrenal nodules. Kidneys are normal in size and enhancement, without hydronephrosis. Peritoneum and bowel: Stomach, small bowel, and colon loops are normal in caliber and wall thickness. The appendix is normal in appearance. No free fluid or air. Nodes and vessels: No retroperitoneal or mesenteric adenopathy. Aorta and inferior vena cava are normal in caliber. Miscellaneous: No ventral hernias. PELVIS: Genitourinary: Bladder wall thickness is normal. The uterus and ovaries appear within normal size limits. Miscellaneous: No inguinal hernias or adenopathy. Bones: No suspicious bony lesions. No vertebral body compression fractures. IMPRESSION: 1. No definite acute intra-abdominal abnormality. Specifically, no evidence of appendicitis. 2. Mild biliary ductal dilatation likely related to prior cholecystectomy. Recommend correlation with laboratory values. Dictated by: Hernando Lockwood M.D. on 05/22/2018 at 22:05 Approved by: Hernando Lockwood M.D. on 05/22/2018 at 22:09
[2018-05-22] MEDS: SODIUM CHLORIDE 0.9% 1,000 ML 1000 ML IV (21:08)
[2018-05-22] MEDS: ONDANSETRON 4 MG/2 ML INJ IV (21:08)
[2018-05-22] MEDS: MORPHINE 4 MG/ML INJ IV (21:08)
[2018-05-22 21:45] LABS: Add Manual Diff / Slide Review NO; Basophils Percent Auto 0.7 % (0-2); Eosinophils Percent Auto 2.4 % (2-4); Hematocrit 39.1 % (36-46); Hemoglobin 13.4 g/dL (12.0-16.0); Lymphocytes Percent Auto 34.3 % (25-40); Mean Corpuscular HGB Conc 34.3 % (30-36); Mean Corpuscular Hemoglobin 32.7 PG (26-34); Mean Corpuscular Volume 95.5 fL (80-100); Monocytes Percent Auto 7.8 % (3-14); Neutrophils Absolute Auto 4200 /uL (1500-7000); Neutrophils Percent Auto 54.8 % (50-75); Platelet Count 225 X10^3/uL (150-400); Red Blood Cell Count 4.09 X10^6/uL (4.0-5.2); Red Cell Distribution Width 12.9 % (11.6-14.8); White Blood Cell Count 7.7 X10^3/uL (4.5-11.0)
[2018-05-22 21:51] LABS: Lactate (Lactic Acid) 0.9 mmol/L (0.7-2.1)
[2018-05-22 21:52] LABS: Alanine Aminotransferase 19 IU/L (9-52); Albumin 3.6 g/dL (3.5-5.0); Albumin Globulin Ratio 1.2 (1.0-2.8); Alkaline Phosphatase 51 U/L (38-126); Aspartate Aminotransferase 24 IU/L (14-36); BUN Creatinine Ratio 13.8 (6-22); Bilirubin Total 0.5 mg/dL (0.2-1.3); Blood Urea Nitrogen 18 mg/dL (7-17); Calcium 8.5 mg/dL (8.4-10.2); Carbon Dioxide 21 mmol/L (22-32); Chloride 110 mmol/L (98-107); Estimated Glomerular Filt Rate 50.8 mL/min (>60); Globulin 3.1 g/dL (1.7-4.1); Glucose 79 mg/dL (70-100); HEMOLYSIS 44 (0-50); Potassium 3.7 mmol/L (3.4-5.1); Sodium 140 mmol/L (137-145); Total Protein 6.7 g/dL (6.3-8.2)
[2018-05-22 21:59] LABS: RBC Urine None Seen (0-5/HPF)
[2018-05-22 22:22] LABS: Ictotest Urine Negative (Negative); WBC Urine 1-5/HPF (0-5/HPF)
[2018-05-22 22:23] LABS: Bacteria Urine Many (>30); Calcium Oxalate Crystals Urine Few; Granular Casts Urine 1-5/LPF; Mucus Urine 1+ (Negative); Squamous Epithelial Cell Urine 1-5 /HPF
[2018-05-22 22:24] LABS: Culture Indicated Urine Specimen Cultured
--- NOTE | 2018-05-22 22:24 | DI.US.S_ITS ---
PROCEDURE: US PELVIC COMPLETE INDICATIONS: Right lower quadrant/adnexa abdominal pain eval for ovarian TECHNIQUE: Real-time scanning was performed of the pelvic organs, with image documentation. Additional endovaginal scanning was necessary due to incomplete visualization of the adnexal and endometrial structures by transabdominal scanning. COMPARISON: [facility], CT, CT ABDOMEN PELVIS W CON, 05/22/2018, 21:22. FINDINGS: Transabdominal scanning: Limited scanning through the kidneys shows no hydronephrosis. No pathologic free abdominal or pelvic fluid. Endovaginal scanning: Uterus: Uterus is normal in size at 6.0 x 2.8 x 3.3 cm. The endometrium measures 4.5 mm in combined thickness. Ovaries: Adnexa are not visualized and cannot be evaluated. IMPRESSION: 1. Uterus is sonographically normal. 2. Adnexa are not visualized and cannot be evaluated. Dictated by: Tammy Jones MD, PhD on 05/23/2018 at 8:35 Approved by: Tammy Jones MD, PhD on 05/23/2018 at 8:37
[2018-05-22] MEDS: HYDROMORPHONE 1 MG INJ 0.5 MG IV (22:25)
[2018-05-22 22:35] VITALS: BP 125/83
[2018-05-22] MEDS: LORazepam 2 MG/ML SYRINGE 0.5 MG IV (22:36)
[2018-05-22 23:46] VITALS: BP 126/45; PULSE 105; RESP 22; O2SAT 97
[2018-05-23 00:42] VITALS: BP 111/54; PULSE 104; RESP 16; TEMP 36.8; O2SAT 96
== END 2018-05-23 00:44 | disposition home or self-care (01) ==
PROVIDERS: Emergency Provider Emergency Medicine
DX: R10.9 Unspecified abdominal pain (principal)
CPT/HCPCS: 36415; 74177; 76830; 76856; 80053; 81003; 81015; 81025; 83605; 85025; 87086; 96361; 96374; 96375; 99283; 99285; J1170; J2060; J2270; J2405; Q9967